=== PATIENT | female | born 1945 | race Caucasian/White ===

== ENCOUNTER 2018-03-25 11:13 | Observation (INO) | payer MEDICARE ==
[~2018-03-25] VITALS: Ht 160 cm; Wt 76.4 kg
[2018-03-25] VITALS (11 sets, daily range): BP systolic 120–165; BP diastolic 81–94; BMI 29.9
--- NOTE | ~2018-03-25 | OP ---
PATIENT NAME: SUDHEER YOUNG MEDICAL RECORD: [id number] :41 LOCATION:D.M2 D.2123 ADMISSION DATE:03/25/18 SURGEON: IRVING GIORDANO MD DATE OF OPERATION: 03/28/2018 PROCEDURES: 1. PTCA stent left circumflex. 2. Selective coronary angiography. INDICATION: Angina and coronary artery disease. PROCEDURE IN DETAIL: After informed consent was obtained and after a detailed description of the risks, benefits as well as alternative therapies, the patient elected to proceed with angiogram and angioplasty. The right femoral area was prepped and draped in normal sterile fashion. The right femoral artery was cannulated via modified Seldinger technique with placement of 6-Lithuanian sheath. All catheters exchanged through this sheath. FINDINGS: The left circumflex has 90% stenosis in the proximal mid vessel. This was addressed with a 2.5 x 18 mm Mickey stent. Result was 0% residual stenosis. OVERALL IMPRESSION: Successful percutaneous transluminal coronary angioplasty stent of the left circumflex going from 80% to 90% initial stenosis to 0% residual. TRANSINT:[id number] Voice Confirmation ID: [id number] DOCUMENT ID: [id number] IRVING GIORDANO MD at 1642 CC: [id number] DICTATION DATE: 03/28/18 1300 BI LEAD: 03/28/18 1317 DIS IN 03/28/[address] [address]
--- NOTE | ~2018-03-25 | HEMODYNAMI ---
PATIENT:SUDHEER YOUNG MEDICAL RECORD: [id number] : 41 LOCATION:[facility] D.2123 ADMISSION DATE: 03/25/18 Generatedon:03/28/201812:59 Patient name: SUDHEER YOUNG Patient #: [id number] SSN: : 1945 Date of study: 03/28/2018 Page: Of Hemodynamic Procedure Report Patient Data Patient Demographics Procedure consent was obtained First Name: SUDHEER Gender: Female Last Name: HANNAH : 1945 Patient #: [id number] Age: 72 year(s) Race: Unknown Additional ID: [id number] Contact details Address: [address] [place] [address] ROAD State: [place] City: [place] Zip code: [address] Admission Admission Data Admission Date: 03/25/2018 Admission Time: 13:02 Arrival Date: 03/25/2018 Arrival Time: 13:02 Admit Source: Emergency Insurance Payor: Medicare department Room #: D.2123 Height (in.): 63 BSA: 1.8 (m2) Height (cm.): 160.02 BMI: 29.82 (kg/m2) Weight (lbs.): 168.35 Weight (kg.): 76.36 Lab Results Lab Result Date: 03/27/2018 Lab Result Time: 0:00 Biochemistry Name Units Result Min Max BUN mg/dl 34 --(----)-* 7 18 Creatinine mg/dl 2.1 --(----)-* 0.6 1.3 CBC Name Units Result Min Max Hemoglobin g/dl 10 *-(----)-- 13.5 17.5 Procedure Procedure Types Cath Procedure Diagnostic Procedure Sedation Charges Moderate Sedation up to 15 minutes PCI Procedure Coronary Stent Coronary Stent Initial Procedure Description Procedure Date Procedure Date: 03/28/2018 Procedure Start Time: 12:35 Procedure End Time: 12:58 Procedure Staff Name Function James Sandhu MD Performing Physician Tania Lombardo RT Monitor Madi Sutton RN Nurse Paula Castillo RT Scrub Procedure Data Cath Procedure Fluoroscopy Diagnostic fluoroscopy Total fluoroscopy Time: 9.4 time: 9.4 min min Diagnostic fluoroscopy Total fluoroscopy dose: dose: 1115 mGy 1115 mGy Contrast Material Contrast Material Type Amount (ml) Isovue 300 84 Entry Location Entry Primary Successful Side Size Upsize Upsize Entry Closure Succes sful Closure Location (Fr) 1 (Fr) 2 (Fr) Remarks Device Remarks Femoral Left 6 Fr Exoseal artery Short Estimated blood loss: 10 ml Procedure Complications No complications Procedure Medications Medication Administration Route Dosage Oxygen etCO2 Nasal cannula 2 l/min Lidocaine 2% added to field 20 Heparin Flush Bag added to field 2 bags (1000units/500ml NS) 0.9% NaCl I.V. 100 ml/hr Versed I.V. 1 mg Fentanyl I.V. 50 mcg Heparin Bolus I.V. 4000 units Versed I.V. 1 mg Fentanyl I.V. 50 mcg Nitroglycerin IC/IA I.C. 200 mcg Hemodynamics Rest BSA: 1.8 (m2) O2 Consumption: Estimated: 160.32 (ml/min) O2 Consumption indexed: Estimated:89.07 (ml/min/m) Heart Rate: 64 (bpm) Snapshots Pre Cath Intra NCS Post Cath Vital Signs Time Heart Resp SPO2 etCO2 NIBP (mmHg) Rhythm Pain Sedation Rate (ipm) (%) (mmHg) Status Level (bpm) 12:22:58 61 16 99 26.2 185/101(149) NSR 0 (11) 10(A) , No pain 12:27:20 62 19 98 27.7 168/98(139) NSR 0 (11) 10(A) , No pain 12:31:38 62 18 99 27.7 158/98(143) NSR 0 (11) 10(A) , No pain 12:35:52 64 19 97 33 149/90(111) NSR 0 (11) 9(A) , No pain 12:40:04 65 20 97 37.5 162/84(132) NSR 0 (11) 9(A) , No pain 12:44:22 63 15 97 36.8 137/81(117) NSR 0 (11) 9(A) , No pain 12:48:34 64 18 97 36 123/76(108) NSR 0 (11) 9(A) , No pain 12:52:42 65 21 95 36 89/71(80) NSR 0 (11) 9(A) , No pain 12:55:50 68 15 96 27 108/77(100) NSR 0 (11) 10(A) , No pain Medications Time Medication Route Dose Verified Delivered Reason Notes Effectiveness by by 12:31:10 0.9% NaCl I.V. 100 James Buffie Per physician ml/hr Phoebe Sutton RN 12:31:48 Oxygen etCO2 2 James Buffie used for Nasal l/min Phoebe Sutton RN procedure cannula 12:31:54 Lidocaine 2% added 20ml James James for local to vial Phoebe Sandhu MD anesthetic field 12:31:59 Heparin Flush added 2 James James used for Bag to bags Phoebe Sandhu MD procedure (1000units/500ml field NS) 12:35:03 Versed I.V. 1 mg James Leijaie for sedation Phoebe Sutton RN 12:35:09 Fentanyl I.V. 50 James Buffie for sedation mcg Phoebe Sutton RN 12:38:48 Heparin Bolus I.V. 4000 James Buffie for verif ied units Phoebe Sutton RN anticoagulation with dr sandhu 12:46:30 Versed I.V. 1 mg James Leijaie for sedation Phoebe Sutton RN 12:46:33 Fentanyl I.V. 50 James Buffie for sedation mcg Phoebe Sutton RN 12:51:18 Nitroglycerin I.C. 200 James James for IC/IA mcg Phoebe Sandhu MD vasodilation Procedure Log Time Note 12:03:20 Patient Height : 63 inches 12:03:20 Patient Weight : 168.35 lbs 12:03:37 Time tracking: Regular hours (M-F 7:00 - 5:00) 12:03:40 Plan of Care:Hemodynamics will remain stable., Cardiac rhythm will remain stable., Comfort level will be maintained., Respiratory function will remain adequate., Patient/ family verbilizes understanding of procedure., Procedure tolerated without complication., Recovers from procedure without complications.. 12:05:31 Tania Counts RT(R) sent for patient. Start room use. 12:15:44 Patient received from PCU to CCL 2 Alert and oriented. Tansferred to table in Supine position. 12:15:45 Warm blankets applied, and jennifer hugger turned on for patient comfort. 12:15:46 Correct patient and procedure confirmed by team. 12:15:47 Signed procedure consent form obtained from patient. 12:15:48 ECG and BP/O2 sat monitors applied to patient. 12:15:49 Full Disclosure recording started 12:21:53 Vital chart was started 12:21:57 Rhythm: sinus rhythm 12:22:15 H&P Date Dictated: 03/26/2018 Within 30 days and on chart.. 12:22:17 Pre-procedure instructions explained to patient. 12:22:17 Pre-op teaching completed and patient verbalized understanding. 12:22:19 Family in patients room. 12:22:20 Patient NPO since Midnight. 12:22:30 Is the patient allergic to Iodine/contrast media? No. 12:22:31 Is patient on blood thinner?Yes 12:22:34 ACC The patient was administered the following blood thiners within the last 24 hours: ACCPlavix 12:22:36 Patient diabetic? No. 12:22:41 Previous problem with sedation/anesthesia? No ? 12:22:42 Snore? Yes 12:22:44 Sleep apnea? No 12:22:46 Deviated septum? No 12:22:46 Opens mouth fully? Yes 12:22:47 Sticks out tongue? Yes 12:22:51 Airway obstruction? No ? 12:22:52 Dentures? No ? 12:22:55 Pre procedure: left dorsailis pedis pulse 2+ Normal; easily identifiable; not easily obliterated 12:22:59 Patient pain scale 0/10 ?. 12:23:05 IV patent on arrival in left antecubital with 0.9% NaCl at KVO. 12:23:16 Lab results completed and on chart. 12:23:24 Left groin area was prepped with chlora-prep and draped in sterile fashion 12:23:25 Alarms reviewed by R. N. 12:23:26 Sharps counted by scrub and verified by R.N. 12:25:08 IV left antecubital D/C'd due to infiltration. 12:30:56 IV started by Madi Sutton RN inleft forearm with a 22 gauge IV catheter with 0.9% NaCl at KVO. 12:31:10 0.9% NaCl 100 ml/hr I.V. was administered by Madi Sutton RN; Per physician; 12:31:48 Oxygen 2 l/min etCO2 Nasal cannula was administered by Madi Sutton RN; used for procedure; 12::54 Lidocaine 2% 20ml vial added to field was administered by James Sandhu MD; for local anesthetic; 12:31:59 Heparin Flush Bag (1000units/500ml NS) 2 bags added to field was administered by James Sandhu MD; used for procedure; 12:32:27 Final Timeout: patient, procedure, and site verified with staff and physician. All members of the team are in agreement. 12:32:29 Left groin site verified by team. 12:32:32 Physical assessment completed. ASA score P 2 - A patient with mild systemic disease as per James Sandhu MD. 12:32:35 Sedation plan: IV Moderate Sedation Medication:Versed, Fentanyl 12:32:43 Use device set CATH PACK 12:32:46 Use device set PHOEBE PCI 12:33:03 IV CATHETER 22g opened to sterile field. 12:33:19 SHEATH Prelude 6Fr 0.035 ([id number]-7T-98-035) opened to sterile field. 12:33:21 INFLATOR Merit BasixCompak (TL9175) opened to sterile field. 12:33:24 CHOICE PT Extra Support 182cm wire ([id number]) opened to sterile field. 12:33:25 GUIDE 6FR XBLAD 3.5 catheter ([id number]) opened to sterile field. 12:35:03 Versed 1 mg I.V. was administered by Madi Sutton RN; for sedation; 12:35:09 Fentanyl 50 mcg I.V. was administered by Madi Sutton RN; for sedation; 12:35:48 Procedure started. 12:35:54 Local anesthetic to left femerol artery with Lidocaine 2% by James Sandhu MD.INITIAL ACCESS ONLY 12:36:46 A 6 Fr Short sheath was inserted into the Left Femoral artery 12:37:02 6 Fr XBLAD 3.5 guide catheter was inserted over the wire 12:37:29 Guide Catheter removed. unable to cannulate vessel. 12:37:48 GUIDE 6FR XBLAD 4.0 catheter ([id number]) opened to sterile field. 12:38:28 CHOICE PT ES wire advanced. 12:38:48 Heparin Bolus 4000 units I.V. was administered by Madi Sutton RN; for anticoagulation; verified with dr sandhu 12:40:55 Bag Decanter () opened to sterile field. 12:40:55 DIAGNOSTIC WIRE .035 260cm J wire (068555) opened to sterile field. 12:40:57 ACIST Syringe (26465) opened to sterile field. 12:40:58 ACIST Hand Control (49512) opened to sterile field. 12:40:58 ACIST Manifold (53567) opened to sterile field. 12:40:59 Medline Cath Pack ([id number]) opened to sterile field. 12:41:16 Baseline sample Acquired. 12:44:26 Inflate balloon Inflation number: 1 A EUPHORA 2.5 x 15 Balloon ([id number]) was prepped and advanced across the Prox CX, then inflated to 15 GUTIERREZ for 0:11 (min:sec). 12:44:39 Balloon removed over the wire. 12:46:30 Versed 1 mg I.V. was administered by Madi Sutton RN; for sedation; 12:46:33 Fentanyl 50 mcg I.V. was administered by Madi Sutton RN; for sedation; 12:46:43 The KIMMY RX 2.5 x 18 stent ([id number]) was advanced then removed because of failure to cross lesion 12:47:40 Inflation number: 2 The EUPHORA 2.5 x 15 Balloon ([id number]) was reinflated across the Prox CX, to 17 GUTIERREZ for 0:06 (min:sec). 12:47:49 Inflation number: 3 The EUPHORA 2.5 x 15 Balloon ([id number]) was reinflated across the Prox CX, to 17 GUTIERREZ for 0:05 (min:sec). 12:48:03 Balloon removed over the wire. 12:49:01 Place stent Inflation Number: 4 A KIMMY RX 2.5 x 18 stent ([id number]) was prepped and advanced across the Prox CX. The stent was deployed at 13 GUTIERREZ for 0:05 (min:sec). 12:51:18 Nitroglycerin IC/IA 200 mcg I.C. was administered by James Sandhu MD; for vasodilation; 12:51:51 Stent catheter was removed intact over wire. 12:52:28 Wire removed. 12:52:29 Guide catheter removed. 12:54:47 Sheath removed intact; hemostasis achieved with Exoseal to the Left Femoral artery. 12:54:49 Procedure ended.(Physican Out) 12:55:33 Fluoroscopy time 09.40 minutes. 12:55:41 Fluoroscopy dose: 1115 mGy 12:55:41 Flurop Dose total: 1115 12:55:46 Contrast amount:Isovue 300 84ml. 12:55:48 Sharps counted by scrub and verified by R.N. 12:55:50 Insertion/operative site no bleeding no hematoma. 12:56:00 Post-op/insertion site Left Femoral artery dressed using a 4 x 4 and Tegaderm. 12:56:06 Post left femerol artery:stable, clean and dry 12:56:08 Post Procedure Pulses reassessed and unchanged 12:56:11 Post-procedure physical assessment completed. ASA score P 2 - A patient with mild systemic disease as per James Sandhu MD. 12:56:13 Post procedure rhythm: unchanged. 12:56:16 Estimated blood loss: 10 ml 12:56:17 Post procedure instruction explained to patient.Patient verbalizes understanding. 12:56:17 Patient needs reinforcement of post procedure teaching. 12:56:38 Procedure type changed to Cath procedure, Diagnostic procedure, Sedation Charges, Moderate Sedation up to 15 minutes, PCI procedure, Coronary Stent, Coronary Stent Initial 12:56:45 Procedure Complication : No complications 12:57:03 EXOSEAL 6Fr (EX600) opened to sterile field. 12:57:28 Tegaderm 4 x 4 (1626W) opened to sterile field. 12:57:57 Procedure and supply charges have been captured, reviewed, submitted and are correct. 12:57:58 Vital chart was stopped 12:57:59 See physician's report for complete and final results. 12:58:01 Report given to PCU. 12:58:12 Patient transfered to PCU with Bed. 12:58:14 Procedure ended. 12:58:14 Full Disclosure recording stopped 12:58:17 End room use (Document Last) Intervention Summary Intervention Notes Time ActionType Lesion and Equipment Used Action# Pressure Duration Attributes 12:44:26 Inflate Prox CX EUPHORA 2.5 x 1 15 00:11 balloon 15 Balloon ([id number]) 12:46:43 Discard KIMMY RX 2.5 x Stent 18 stent ([id number]) 12:47:40 Reinflate Prox CX EUPHORA 2.5 x 2 17 00:06 balloon 15 Balloon ([id number]) 12:47:49 Reinflate Prox CX EUPHORA 2.5 x 3 17 00:05 balloon 15 Balloon ([id number]) 12:49:01 Place stent Prox CX KIMMY RX 2.5 x 4 13 00:05 18 stent ([id number]) Device Usage Item Name Manufacture Quantity Catalog Number Hospital Part Current Minimal Lot# / Charge Number Stock Stock Serial# Code IV CATHETER 22g B. Irwin 1 [id number] 5 SHEATH Prelude Merit 1 [id number] [id number] [id number] 5 6Fr 0.035 Medical ([id number]) INFLATOR Merit Merit 1 [id number] 847611 967786 155680 15 Cl[facility]TouchCastle[facility] HospitalThe Trade Desk Medical (UC2619) CHOICE PT Extra Atlantic 1 [id number] 956981 529197 262870 5 Support 182cm Scientific wire ([id number]) GUIDE 6FR XBLAD Cardinal 1 [id number] 555707 515134 934811 10 3.5 catheter Health ([id number]) GUIDE 6FR XBLAD Cardinal 1 [id number] 085089 309434 939968 3 4.0 catheter Health (29064084) Bag Decanter Microtek 1 2001S 285168 43466 147380 5 () Medical Inc. DIAGNOSTIC WIRE St Rohit 1 560562 269957 047066 238696 30 .035 260cm J wire (654327) ACIST Syringe Acist 1 73614 703790 676610 927921 20 (55744) Medical Systems Inc ACIST Hand Acist 1 59910 852281 437929 548487 5 Control (58029) Medical Systems Inc ACIST Manifold Acist 1 80387 468230 305511 628786 5 (18403) Medical Systems Inc Medline Cath Cardinal 1 [id number] 999051 35986 957372 5 Pack Health ([id number]) EUPHORA 2.5 x Medtronic 1 [id number] 007393 512549 988232 5 [id number] 15 Balloon ([id number]) KIMMY RX 2.5 x Medtronic 1 [id number] 753816 4151365 926471 5 [id number] 18 stent ([id number]) EXOSEAL 6Fr Cardinal 1 EX600 293723 687429 586800 10 (EX600) Health Tegaderm 4 x 4 3M 1 1626W 487489 477952 015692 5 (1626W) Signature Audit [place] Stage Time Signature Unsigned Intra-Procedure 03/28/2018 Tania 12:58:56 PM Counts RT(R) Signatures Monitor : Tania Signature : Counts RT Date : Time : [id number] [place] [address]
--- NOTE | ~2018-03-25 | HP ---
PATIENT: SUDHEER TALBERT MEDICAL RECORD: [id number] ACCOUNT: [id number] LOCATION:[address] : 41 ADMISSION DATE: 03/25/18 HISTORY AND PHYSICAL EXAMINATION ADMISSION DIAGNOSES: 1. Angina. 2. Shortness of breath, dyspnea on exertion. 3. Hypertension. 4. Family history of coronary artery disease. HISTORY OF PRESENT ILLNESS: Ms. Talbert has been having increasing episodes of chest pain, chest pressure over the past few months. It has really accelerated over the last week. She now has chest pressure and extreme shortness of breath, dyspnea on exertion with any mild exertion. Her EKG is with nonspecific ST-T abnormalities. She still had episodes of chest pressure since being admitted to the hospital. Her troponin is normal. PHYSICAL EXAMINATION: GENERAL APPEARANCE: Well-nourished, well-developed, appears stated age. Level of distress, comfortable. PSYCHIATRIC: Mental status, alert, normal affect. Orientation, oriented to time, place and person. EYES: Lids and conjunctiva, noninjected. No discharge, no pallor. ENT: Lips, teeth, gums, normal dentition. Oropharynx, no cyanosis, no pallor. NECK: Carotid arteries, bilateral normal upstroke, no bruits, no thrills. JUGULAR VEINS: No jugular venous pressure or distention. CERVICAL LYMPH NODES: Nontender, nonenlarged. THYROID: Not enlarged. Nontender. No nodules. LUNGS: Respiratory effort, unlabored. CHEST: Normal curvature. No thoracic deformity. No chest wall tenderness. Percussion, resonant. Auscultation, clear. No wheezes, no rales, no rhonchi. CARDIOVASCULAR: Precordial exam, nondisplaced. No heaves or pericardial thrills. Rate and rhythm, regular. Heart sounds, normal S1, normal S2. No S3, no gallop, no rub. Systolic murmur, not heard. Diastolic murmur, not heard. EXTREMITIES: No cyanosis, no edema. Peripheral pulses, full and equal in all extremities, except as noted. No bruits appreciated. ABDOMEN: Soft, nondistended. Normal aorta. No bruit. Nontender. No masses. Liver, nontender, no hepatomegaly. Spleen, nontender, no splenomegaly. MUSCULOSKELETAL: No joint tenderness. No joint swelling. No erythema. NEUROLOGICAL: Normal gait, normal strength, normal tone. SKIN: Warm and dry. REVIEW OF SYSTEMS: The patient reports easy bruising but reports no swollen glands. The patient reports no fever, no night sweats, no significant weight gain, no significant weight loss. No significant exercise tolerance. The patient reports no dry eyes, no irritation, no vision change. Patient reports no difficulty hearing and no ear pain. Patient reports no frequent nose bleeds or nose and sinus problems. Patient reports on arm pain on exertion. No shortness of breath while lying down. No history of heart murmur. Patient reports no cough, no wheezing or coughing up blood. Patient reports no abdominal pain, no vomiting. Normal appetite. No diarrhea and not vomiting blood. No nausea and no constipation. Patient reports no incontinence. No difficulty urinating. No hematuria. No increased frequency. Patient reports no muscle aches. No weakness, no arthralgias, no back pain. No swelling of the HISTORY AND PHYSICAL [id number] HANNAH,SUDHEER extremities. Patient reports no abnormal mole, no jaundice, no rashes. Reports no loss of consciousness. No weakness and no numbness. No seizures, dizziness, or headaches. The patient reports no depression, no sleep disturbance, feeling safe in a relationship and no alcohol abuse. Patient reports on fatigue. Reports no runny nose or sinus pressure. No itching, no hives, and no frequent sneezing. OVERALL IMPRESSION: Anginal symptomatology in a rapidly progressive fashion. We will proceed with coronary angiography. Further care depends upon findings of the angiography. TRANSINT:[id number] Voice Confirmation ID: [id number] DOCUMENT ID: [id number] IRVING GIORDANO MD at 1642 CC: [id number] DICTATION DATE: 03/26/18 1004 SPEECH THERAPY DIRECTOR: 03/26/18 1035 DIS IN 03/28/18 [facility] [address] [place] [address]
--- NOTE | ~2018-03-25 | HEMODYNAMI ---
PATIENT:SUDHEER YOUNG MEDICAL RECORD: [id number] : 41 LOCATION:[facility] D.2123 ADMISSION DATE: 03/25/18 Generatedon:03/27/20189:47 Patient name: SUDHEER YOUNG Patient #: [id number] SSN: : 1945 Date of study: 03/27/2018 Page: Of Hemodynamic Procedure Report Patient Data Patient Demographics Procedure consent was obtained First Name: SUDHEER Gender: Female Last Name: HANNAH : 1945 Patient #: [id number] Age: 72 year(s) Race: Unknown Additional ID: [id number] Contact details Address: [address] [place] [address] ROAD State: [place] City: [place] Zip code: [address] Admission Admission Data Admission Date: 03/25/2018 Admission Time: 13:02 Arrival Date: 03/25/2018 Arrival Time: 13:02 Admit Source: Emergency Insurance Payor: Medicare department Room #: D.2123 Height (in.): 63 BSA: 1.8 (m2) Height (cm.): 160.02 BMI: 29.82 (kg/m2) Weight (lbs.): 168.35 Weight (kg.): 76.36 Lab Results Lab Result Date: 03/27/2018 Lab Result Time: 0:00 Biochemistry Name Units Result Min Max BUN mg/dl 34 --(----)-* 7 18 Creatinine mg/dl 2.1 --(----)-* 0.6 1.3 CBC Name Units Result Min Max Hemoglobin g/dl 10 *-(----)-- 13.5 17.5 Procedure Procedure Types Cath Procedure Diagnostic Procedure LHC LH w/Coronaries Sedation Charges Moderate Sedation up to 30 minutes PCI Procedure Coronary Stent Coronary Stent Initial Procedure Description Procedure Date Procedure Date: 03/27/2018 Procedure Start Time: 9:24 Procedure End Time: 9:43 Procedure Staff Name Function James Sandhu MD Performing Physician Marce Rhoades RT Monitor Prasad Ruiz RN Nurse Laurita Sarmiento RT Scrub Procedure Data Cath Procedure Fluoroscopy Diagnostic fluoroscopy Total fluoroscopy Time: 3.9 time: 3.9 min min Diagnostic fluoroscopy Total fluoroscopy dose: 522 dose: 522 mGy mGy Contrast Material Contrast Material Type Amount (ml) Isovue 300 102 Entry Location Entry Primary Successful Side Size Upsize Upsize Entry Closure Succes sful Closure Location (Fr) 1 (Fr) 2 (Fr) Remarks Device Remarks Femoral Right 5 Fr 6 Fr Exoseal artery Short Estimated blood loss: 5 ml Diagnostic catheters Device Type Used For End Catheter Placement MULTIPACK Pigtail 5 Fr LV Angiography catheter MULTIPACK JL 4.0 5Fr Left Coronary catheter Angiography MULTIPACK 3DRC 5Fr Right Coronary catheter Angiography Procedure Complications No complications Procedure Medications Medication Administration Route Dosage Oxygen etCO2 Nasal cannula 2 l/min Heparin Flush Bag added to field 2 bags (1000units/500ml NS) 0.9% NaCl I.V. 100 ml/hr Fentanyl I.V. 50 mcg Versed I.V. 1 mg Fentanyl I.V. 25 mcg Versed I.V. 0.5 mg Heparin Bolus I.V. 4000 units Hemodynamics Rest BSA: 1.8 (m2) HGB: 10 (g/dl) O2 Consumption: Estimated: 163.83 (ml/min) O2 Consu mption indexed: Estimated:91.02 (ml/min/m) Heart Rate: 69 (bpm) Pressure Samples Time Site Value (mmHg) Purpose Heart Use Rate(bpm) 9:25 LV 87/16,17 Snapshot 77 Snapshots Pre Cath Intra NCS Post Cath Vital Signs Time Heart Resp SPO2 etCO2 NIBP (mmHg) Rhythm Pain Sedation Rate (ipm) (%) (mmHg) Status Level (bpm) 8:32:27 69 16 97 22.4 165/94(124) NSR 0 (11) 10(A) , No pain 8:36:52 70 17 98 11.2 161/97(139) NSR 0 (11) 10(A) , No pain 8:41:14 71 17 99 3.7 164/93(132) NSR 0 (11) 10(A) , No pain 8:45:34 72 16 98 1.4 150/88(117) NSR 0 (11) 10(A) , No pain 8:49:46 74 16 97 16.4 144/92(122) NSR 0 (11) 10(A) , No pain 8:53:56 75 16 97 26.9 142/94(119) NSR 0 (11) 10(A) , No pain 8:58:10 74 17 97 26.1 142/92(118) NSR 0 (11) 10(A) , No pain 9:02:26 75 17 96 0 153/96(127) NSR 0 (11) 10(A) , No pain 9:06:46 71 17 97 0 148/94(121) NSR 0 (11) 10(A) , No pain 9:11:00 75 17 97 0 150/99(129) NSR 0 (11) 10(A) , No pain 9:15:08 72 18 96 27.6 145/99(138) NSR 0 (11) 10(A) , No pain 9:19:22 76 16 96 27.6 142/93(133) NSR 0 (11) 9(A) , No pain 9:23:29 75 16 96 0 138/94(122) NSR 0 (11) 9(A) , No pain 9:27:45 77 17 95 1.4 135/87(116) NSR 0 (11) 9(A) , No pain 9:32:49 78 16 95 28.4 148/90(123) NSR 0 (11) 9(A) , No pain 9:37:07 78 17 95 0 129/79(110) NSR 0 (11) 9(A) , No pain 9:41:21 76 16 94 11.2 140/83(114) NSR 0 (11) 9(A) , No pain 9:44:15 77 16 96 0 141/89(119) NSR 0 (11) 9(A) , No pain Medications Time Medication Route Dose Verified Delivered Reason Notes Effectiveness by by 8:32:21 Oxygen etCO2 2 James Parham Per physician Nasal l/min Phoebe Ruiz RN cannula 8:32:29 Heparin Flush added 2 James Parham used for Bag to bags Phoebe Ruiz automotive mechanical engineer (1000units/500ml field NS) 8:32:38 0.9% NaCl I.V. 100 James Parham Per physician ml/hr Phoebe Ruiz RN 9:17:12 Fentanyl I.V. 50 James Parham for sedation mcg Phoebe Ruiz RN 9:17:19 Versed I.V. 1 mg James Parham for sedation Phoebe Ruiz RN 9:25:44 Fentanyl I.V. 25 James Parham for sedation mcg Phoebe Ruiz RN 9:25:51 Versed I.V. 0.5 James Parham for sedation mg Phoebe Ruiz RN 9:32:49 Heparin Bolus I.V. 4000 James Parham for units Phoebe Ruiz RN anticoagulation Procedure Log Time Note 8:07:51 Patient Height : 63 inches 8:07:56 Patient Weight : 168.35 lbs 8:09:38 Lab Result : Hemoglobin 10 g/dl 8::38 Lab Result : Creatinine 2.1 mg/dl 8:09:38 Lab Result : BUN 34 mg/dl 8:10:13 Diagnostic Cath status Elective 8:20:43 Laurita MOREIRA(R) sent for patient. Start room use. 8:30:56 Time tracking: Regular hours (M-F 7:00 - 5:00) 8:31:01 Plan of Care:Hemodynamics will remain stable., Cardiac rhythm will remain stable., Comfort level will be maintained., Respiratory function will remain adequate., Patient/ family verbilizes understanding of procedure., Procedure tolerated without complication., Recovers from procedure without complications.. 8:31:01 Vital chart was started 8:31:06 Patient received from Med II to [facility] 3 Alert and oriented. Tansferred to table in Supine position. 8:31:07 Warm blankets applied, and jennifer hugger turned on for patient comfort. 8:31:08 Correct patient and procedure confirmed by team. 8:31:09 Signed procedure consent form obtained from patient. 8:31:10 ECG and BP/O2 sat monitors applied to patient. 8:31:11 Baseline sample Acquired. 8:31:14 Rhythm: sinus rhythm 8:31:16 Full Disclosure recording started 8:31:36 H&P Date Dictated: 03/27/2018 New H&P dictated by physician.. 8:31:38 Pre-procedure instructions explained to patient. 8:31:38 Pre-op teaching completed and patient verbalized understanding. 8:31:40 Family in patients room. 8:31:41 Patient NPO since Midnight. 8:31:43 Is the patient allergic to Iodine/contrast media? No. 8:31:44 Was the patient premedicated? No 8:31:45 Is patient on blood thinner?Yes 8:31:48 ACC The patient was administered the following blood thiners within the last 24 hours: ACCPlavix 8:31:50 Patient diabetic? No. 8:31:52 Previous problem with sedation/anesthesia? No ? 8:31:54 Snore? Yes 8:31:55 Sleep apnea? No 8:31:56 Deviated septum? No 8:31:56 Opens mouth fully? Yes 8:31:57 Sticks out tongue? Yes 8:31:59 Airway obstruction? No ? 8:32:02 Dentures? No ? 8:32:06 Pre procedure: right dorsailis pedis pulse 2+ Normal; easily identifiable; not easily obliterated 8:32:08 Pre procedure: left dorsailis pedis pulse 2+ Normal; easily identifiable; not easily obliterated 8:32:10 Patient pain scale 0/10 ?. 8:32:16 IV patent on arrival in left forearm with 0.9% NaCl at [facility]. 8:32:21 Oxygen 2 l/min etCO2 Nasal cannula was administered by Prasad Ruiz RN; Per physician; 8:32:23 Lab results completed and on chart. 8:32:27 Right groin area was prepped with chlora-prep and draped in sterile fashion 8:32:28 Alarms reviewed by R. N. 8:32:29 Heparin Flush Bag (1000units/500ml NS) 2 bags added to field was administered by Prasad Ruiz RN; used for procedure; 8:32:29 Sharps counted by scrub and verified by R.N. 8:32:38 0.9% NaCl 100 ml/hr I.V. was administered by Prasad Ruiz RN; Per physician; 8:39:27 Admit Source: Emergency department 8:39:35 Insurance Payor : Medicare 8:39:40 Arrival Date: 03/25/2018 1:02:00 PM 8:43:44 Zero performed for pressure channel P1 8:43:53 Zero performed for pressure channel P1 9:15:30 Physician arrived 9:15:31 --------ALL STOP TIME OUT------ 9:15:32 Final Timeout: patient, procedure, and site verified with staff and physician. All members of the team are in agreement. 9:15:34 Right groin site verified by team. 9:15:37 Physical assessment completed. ASA score P 2 - A patient with mild systemic disease as per James Sandhu MD. 9:15:43 Sedation plan: IV Moderate Sedation Medication:Versed, Fentanyl 9:17:12 Fentanyl 50 mcg I.V. was administered by Prasad Ruiz RN; for sedation; 9:17:19 Versed 1 mg I.V. was administered by Prasad Ruiz RN; for sedation; 9:17:53 Use device set Femoral Dx 9:17:55 ACIST Syringe (04243) opened to sterile field. 9:17:55 Bag Decanter (2002S) opened to sterile field. 9:17:55 Medline Cath Pack ([id number]) opened to sterile field. 9:17:56 DIAGNOSTIC WIRE .035 260cm J wire (199934) opened to sterile field. 9:17:57 ACIST Hand Control (48664) opened to sterile field. 9:17:58 ACIST Manifold (44747) opened to sterile field. 9:17:58 DIAGNOSTIC Multipack 5Fr catheter set (OW2808) opened to sterile field. 9:17:59 Tegaderm 4 x 4 (1626W) opened to sterile field. 9:18:00 SHEATH Prelude 5Fr 0.035 (NVM-4A-27-035) opened to sterile field. 9:24:06 Procedure started. 9:24:10 Local anesthetic to right femoral artery with Lidocaine 2% by James Sandhu MD.INITIAL ACCESS ONLY 9:24:23 A 5 Fr sheath was inserted into the Right Femoral artery 9:25:24 A MULTIPACK Pigtail 5 Fr catheter was advanced over the wire and used for LV Angiography. 9:25:39 LV hemodynamics recorded. 9:25:40 LV gram done using KHAN ::43 Injector settings: Ml/sec: 5, Volume: 15, 9::44 Fentanyl 25 mcg I.V. was administered by Prasad Ruiz RN; for sedation; 9::51 Versed 0.5 mg I.V. was administered by Prasad Ruiz RN; for sedation; 9:25:52 EF : 60 % 9:25:56 Catheter removed. 9:26:12 A MULTIPACK JL 4.0 5Fr catheter was advanced over the wire and used for Left Coronary Angiography. 9:26:29 LCA angiography performed. 9::32 Injector settings: Ml/sec: 3, Volume: 6, 9:28:30 Catheter removed. 9:28:35 A MULTIPACK 3DRC 5Fr catheter was advanced over the wire and used for Right Coronary Angiography. 9:29:07 RCA angiography performed. 9:29:09 Injector settings: Ml/sec: 3, Volume: 6, 9:29:38 Catheter removed. 9:29:40 Proceeding to intervention. 9:30:03 SHEATH 6Fr Prelude ([id number]) opened to sterile field. 9:30:04 CHOICE PT Extra Support 182cm wire ([id number]) opened to sterile field. 9:30:05 INFLATOR Merit BasixCompak (OJ9708) opened to sterile field. 9:31:34 GUIDE 6FR XB 4.0 SH catheter ([id number]) opened to sterile field. 9:31:55 xb 4 sh damaged 9:31:57 GUIDE 6FR XB 4.0 SH catheter (99562144) opened to sterile field. 9:32:26 Sheath upsized to a 6 Fr Short. 9:32:49 Heparin Bolus 4000 units I.V. was administered by Prasad Ruiz RN; for anticoagulation; 9:33:00 6 Fr xb 4 sh guide catheter was inserted over the wire 9:33:30 choice pt wire advanced. 9:38:23 Inflate balloon Inflation number: 1 A EUPHORA 2.5 x 15 Balloon ([id number]) was prepped and advanced across the Prox LAD, then inflated to 11 GUTIERREZ for 0:10 (min:sec). 9:38:28 Balloon removed over the wire. 9:39:51 Place stent Inflation Number: 2 A KIMMY RX 2.5 x 15 stent ([id number]) was prepped and advanced across the Prox LAD. The stent was deployed at 13 GUTIERREZ for 0:10 (min:sec). 9:41:04 Stent catheter was removed intact over wire. 9:41:05 Wire removed. 9:41:06 Guide catheter removed. 9:41:18 EXOSEAL 6Fr (EX600) opened to sterile field. 9:41:30 Sheath removed intact; hemostasis achieved with Exoseal to the Right Femoral artery. 9:41:31 Procedure ended.(Physican Out) 9:42:09 Fluoroscopy time 03.90 minutes. 9:42:19 Fluoroscopy dose: 522 mGy 9:42:19 Flurop Dose total: 522 9:42:27 Contrast amount:Isovue 300 102ml. 9:42:29 Sharps counted by scrub and verified by R.N. 9:42:30 Insertion/operative site no bleeding no hematoma. 9:42:33 Post-op/insertion site Right Femoral artery dressed using a 4 x 4 and Tegaderm. 9:42:36 Post right femoral artery:stable 9:42:38 Post Procedure Pulses reassessed and unchanged 9:42:41 Post procedure rhythm: unchanged. 9:42:43 Estimated blood loss: 5 ml 9:42:46 Post procedure instruction explained to patient.Patient verbalizes understanding. 9:42:46 Patient needs reinforcement of post procedure teaching. 9:43:08 Procedure type changed to Cath procedure, Diagnostic procedure, LHC, LHC w/Coronaries, Sedation Charges, Moderate Sedation up to 30 minutes, PCI procedure, Coronary Stent, Coronary Stent Initial 9:43:09 Procedure and supply charges have been captured, reviewed, submitted and are correct. 9:43:15 Procedure Complication : No complications 9:43:18 Vital chart was stopped 9:43:19 See physician's report for complete and final results. 9:43:25 Report given to [facility]. 9:43:27 Patient transfered to [facility] with Stretcher. 9:43:30 Procedure ended. 9:43:30 Full Disclosure recording stopped 9:43:40 ACC-PCI Only Patient was given prescriptions, or instructed by James Sandhu MD to start/continue the following medications upon discharge: Plavix 9:43:42 End room use (Document Last) Intervention Summary Intervention Notes Time ActionType Lesion and Equipment Used Action# Pressure Duration Attributes 9:38:23 Inflate Prox LAD EUPHORA 2.5 x 1 11 00:10 balloon 15 Balloon ([id number]) 9:39:51 Place stent Prox LAD KIMMY RX 2.5 x 2 13 00:10 15 stent ([id number]) Device Usage Item Name Manufacture Quantity Catalog Number Hospital Part Current Minimal Lot# / Charge Number Stock Stock Serial# Code ACIST Syringe Acist 1 98088 409650 398518 [id number] 20 (67889) [employer] Bag Decanter Microtek 1 427401 43060 003718 5 () Medical Inc. Medline Cath Cardinal 1 [id number] 752233 16058 226470 5 Sterio.me Health ([id number]) DIAGNOSTIC WIRE St Rohit 1 271812 636006 759586 250725 30 .035 260cm J wire (893625) ACIST Hand Acist 1 58500 266623 846790 366943 5 Control (48840) [employer] Inc ACIST Manifold Acist 1 31030 687122 243266 404019 5 (43830) [employer] Inc DIAGNOSTIC Cardinal 1 DA5031 532246 76076 560525 30 Multipack 5Fr Health catheter set (JV3918) Tegaderm 4 x 4 3M 1 1626W 064424 177318 324337 5 (1626W) SHEATH Prelude Merit 1 [id number]-9T-82-035 373001 944209 300938 5 5Fr 0.035 Medical (UBY-8S-32-035) MULTIPACK Cardinal 1 091176 5 Pigtail 5 Fr Health catheter MULTIPACK JL Cardinal 1 845204 5 4.0 5Fr Health catheter MULTIPACK 3DRC Cardinal 1 788593 5 5Fr catheter Health SHEATH 6Fr Merit 1 [id number] 768005 100474 864118 5 Prelude Medical ([id number]) CHOICE PT Extra [employer] 1 [id number] 872904 242369 359083 5 Support 182cm Scientific wire ([id number]) INFLATOR Merit Merit 1 VR4457 298655 593268 248850 15 KickAss [employer] Direct Medical (WG3979) GUIDE 6FR XB Cardinal 2 [id number] 061573 265801 484135 2 4.0 SH catheter Health (96959689) EUPHORA 2.5 x Medtronic 1 [id number] 808157 875901 542759 5 [id number] 15 Balloon ([id number]) KIMMY RX 2.5 x Medtronic 1 [id number] 049925 2485831 036416 5 [id number] 15 stent ([id number]) EXOSEAL 6Fr Cardinal 1 EX600 192766 908682 019510 10 (EX600) Health Signature Audit [place] Stage Time Signature Unsigned Intra-Procedure 03/27/2018 Marce Rhoades 9:46:50 AM RT(R) Signatures Monitor : Marce Rhoades RT Signature : Date : Time : [id number] [place] [address]
--- NOTE | ~2018-03-25 | EC ---
PATIENT:SUDHEER YOUNG DATE OF SERVICE: 03/25/18 SEX: F MEDICAL RECORD: [id number] DATE OF : 41 LOCATION:D.M2 D.212 AGE OF PATIENT: 72 ADMISSION DATE: 03/25/18 REFERRING PHYSICIAN: INTERPRETING PHYSICIAN: IRVING SANDHU MD ECHOCARDIOGRAM REPORT ECHO CHARGES 4 ECHO COMPLETE Date: 03/26 CLINICAL DIAGNOSIS: SOB/ELEVATED BNP ECHOCARDIOGRAPHIC MEASUREMENTS (adult normal given) AC root (d.<3.7cm) 3.4 cm LV Septum d (<1.2 cm> 1.5 cm Valve Excursion 1.2 cm LV Septum (systole) 1.6 cm Left Atria (s.<4.0cm> 3.5 cm LVPW d(<1.2cm) 1.4 cm RV (d.<2.3cm) 3.3 cm LVPW (sytole) 1.6 cm LV diastole(<5.6CM) 4.4 cm MV E-F(>70mm/sec) cm LV systole 3.4 cm LVOT Diameter 1.7 cm MV exc.(>10mm) 1.2 cm Est.ejection fraction (50-75%) % DOPPLER: LVIT cm/sec A 95.0 cm/sec E 62.0 cm/sec LA cm/sec RVSP 16 mmHg LVOT 128 cm/sec AOP1/2T m/s Asc. Ao 172 cm/sec RVOT 76 cm/sec RA cm/sec PA 96 cm/sec AV Gradient Peak 11.77mmHg AV Mean 6.45 mmHg AV Area 1.8 cm MV Gradient Peak 4.02 mmHg MV Mean 1.28 mmHg MV Area cm COMMENTS: Room Worker: Osbaldo MAXWELL Dot Net Developer: 1 Dr. Sandhu TAPE# PACS Pericardial Effusion N DATE OF SERVICE: 03/26/2018 PROCEDURE: Echocardiogram. FINDINGS: 1. Left ventricular chamber status is within normal limits. Left ventricular systolic function is normal. Overall ejection fraction estimated at 55%. 2. Left atrium, right atrium, and right ventricle chamber sizes are within normal limits. 3. Valvular structures have normal structure and motion. ECHOCARDIOGRAM REPORT [id number] SUDHEER YOUNG 4. Doppler interrogation only reveals mild aortic insufficiency. No other valvular insufficiency or stenosis. 5. No evidence of pericardial effusion or left ventricular thrombus. Pulmonary systolic pressure is normal estimated at 16 mmHg. TRANSINT:[id number] Voice Confirmation ID: [id number] DOCUMENT ID: [id number] IRVING SANDHU MD at 1642 CC: [id number] DICTATION DATE: 03/27/18 1231 JANITOR HELPER: 03/27/18 1332 DIS IN 03/28/18 [facility] [address] [facility], [facility]
--- NOTE | ~2018-03-25 | DS ---
PATIENT:SUDHEER TALBERT :41 MEDICAL RECORD: [id number] DISCHARGE SUMMARY ADMISSION DATE: 03/25/18 DISCHARGE DATE: 03/28/18 DIAGNOSES: 1. Angina. 2. Coronary artery disease. 3. Percutaneous transluminal coronary angioplasty stent of left anterior descending and left circumflex this admission. HOSPITAL COURSE: Mrs. Talbert presents with unstable anginal symptomatology, found to have significant disease of the left circumflex and LAD, underwent successful PTCA stent of both territories, was discharged home with the addition of aspirin and Plavix to her medical regimen. Will follow up with [facility] in 1 month. TRANSINT:[id number] Voice Confirmation ID: [id number] DOCUMENT ID: [id number] IRVING GIORDANO MD at 1642 CC: [id number] DICTATION DATE: 03/28/18 1300 BLUEPRINT ASSEMBLER: 03/28/18 1312 DIS IN 03/28/18 [id number] [place] [address]
--- NOTE | ~2018-03-25 | OP ---
PATIENT NAME: SUDHEER YOUNG MEDICAL RECORD: [id number] :41 LOCATION:D.M2 D.2123 ADMISSION DATE:03/25/18 SURGEON: IRVING GIORDANO MD DATE OF OPERATION: 03/27/2018 PROCEDURES: 1. PTCA stent LAD. 2. Left heart catheterization. 3. Selective coronary angiography. 4. Left ventriculogram. INDICATION: Angina and coronary artery disease. PROCEDURE IN DETAIL: After informed consent was obtained and after a detailed description of risks, benefits as well as alternative therapies, the patient elected to proceed with angiogram and angioplasty. The right femoral area was prepped and draped in normal sterile fashion. The right femoral artery was cannulated via modified Seldinger technique with placement of 6-Georgian sheath. All catheters exchanged through this sheath. FINDINGS: The left ventriculogram was performed in standard 30-degree KHAN view, reveals good cardiac wall motion throughout all segments. Overall ejection fraction estimated 60%. SELECTIVE CORONARY ANGIOGRAPHY: 1. Left main is heavily calcified, but does not appear to be flow limiting stenosis. 2. The left anterior descending has a 90% stenosis proximally. 3. The circumflex has 90% stenosis proximally. 4. The right coronary artery is large, dominant with moderate diffuse disease. PTCA STENT OF THE LAD: The stent used was a 2.5 x 15 mm [place]. Result was 0% residual stenosis. OVERALL IMPRESSION: Successful percutaneous transluminal coronary angioplasty stent of the left anterior descending going from 90% initial stenosis to 0% residual. PLAN: For PTCA stent of the left circumflex in the near future. TRANSINT:[id number] Voice Confirmation ID: [id number] DOCUMENT ID: [id number] IRVING GIORDANO MD at 1642 CC: [id number] DICTATION DATE: 03/27/18 0945 RUG CLEANER HELPER: 03/27/18 1104 DIS IN 03/28/18 [place] [id number]
[2018-03-25] MEDS ORDERED: LEVOTHYROXINE137 MCG PO (11:30)
[2018-03-25] MEDS ORDERED: METOPROLOL TART50 MG PO (11:30)
[2018-03-25] MEDS ORDERED: STRATTERA40 MG PO (11:32)
[2018-03-25] MEDS ORDERED: HYZAAR 50-12.51 TAB PO (11:32)
[2018-03-25] MEDS ORDERED: CO Q-10100 MG PO (11:33)
[2018-03-25] MEDS ORDERED: NIACIN100 MG PO (11:33)
[2018-03-25] MEDS ORDERED: FLAXSEED OIL1000 MG PO (11:34)
[2018-03-25] MEDS ORDERED: MAGNESIUM OXID500 MG PO (11:35)
[2018-03-25] MEDS ORDERED: DHEA25 M1 PO (11:35)
[2018-03-25] MEDS ORDERED: VITAMIN D31000 UNI2 PO (11:35)
[2018-03-25] MEDS ORDERED: MULTIPLE VITAMI1 TA1 PO (11:36)
[2018-03-25 11:51] LABS: BASOPHILS 0.1 % (0-2); EOSINOPHILS 0.6 % (0-7); HEMATOCRIT 31.2 % (36.0-48.0); HEMOGLOBIN 10.7 g/dL (12-16); IMMATURE GRANULOCYTES 0.3 % (0-5); LYMPHOCYTES 13.1 % (15-50); MCH 31.8 pg (26.0-34.0); MCHC 34.3 g/dL (31.0-37.0); MCV 92.9 fL (80.0-100.0); MEAN PLATELET VOLUME 9.7 fL (7.4-10.4); MONOCYTES 5.9 % (2-11); PLATELET COUNT 296 10x3/uL (130-400); RBC 3.36 10x6/uL (4.00-5.40); RDW 12.8 % (11.5-14.5); WBC 10.4 10x3/uL (4.8-10.8)
[2018-03-25 12:42] LABS: ALBUMIN 2.8 g/dL (3.4-5.0); ALKALINE PHOSPHATASE 75 U/L (46-116); ALT (SGPT) 9 U/L (10-68); BILIRUBIN - TOTAL 0.28 mg/dL (0.2-1.3); CALC OSMOLALITY 282 mosm/kg (275-300); CALCIUM 8.5 mg/dL (8.5-10.1); CARBON DIOXIDE 31.8 mmol/L (21.0-32.0); CHLORIDE - SERUM 98 mmol/L (98-107); CREATININE - SERUM 1.9 mg/dL (0.6-1.3); GLUCOSE 98 mg/dL (74-106); POTASSIUM - SERUM 3.5 mmol/L (3.5-5.1); PROTEIN - SERUM 7.1 g/dL (6.4-8.2); SODIUM 137 mmol/L (136-145); UREA NITROGEN 37 mg/dL (7-18); eGFR NON AFRICAN AMERICAN 27 mL/min (90-120)
[2018-03-25 12:43] LABS: LIPASE 216 U/L (73-393); PRO BNP 2453 pg/mL (0-125)
[2018-03-25 12:44] LABS: TROPONIN-I < 0.017 ng/mL (0.000-0.060)
[2018-03-25] MEDS ORDERED: AUGMENTIN 875-11 TAB PO (21:01)
[2018-03-26] VITALS (7 sets, daily range): BP systolic 121–146; BP diastolic 66–93; Ht 160 cm; Wt 76.4 kg
[2018-03-26 14:46] LABS: % SATURATION 10 % (15-55); IRON 18 ug/dl (35-150); TOTAL IRON BIND CAPACITY 179 ug/dl (260-445); UNSAT IRON BIND CAPACITY 161 ug/dl (150-375)
[2018-03-27 04:16] VITALS: BP 144/94
[2018-03-27 05:15] LABS: BASOPHILS 0.2 % (0-2); EOSINOPHILS 2.3 % (0-7); IMMATURE GRANULOCYTES 0.5 % (0-5); LYMPHOCYTES 18.3 % (15-50); MCH 30.7 pg (26.0-34.0); MCHC 33.3 g/dL (31.0-37.0); MEAN PLATELET VOLUME 8.9 fL (7.4-10.4); MONOCYTES 9.2 % (2-11); NEUTROPHILS 69.5 % (40-80); PLATELET COUNT 272 10x3/uL (130-400); RBC 3.26 10x6/uL (4.00-5.40); RDW 12.7 % (11.5-14.5); WBC 8.1 10x3/uL (4.8-10.8)
[2018-03-27 05:43] LABS: ANION GAP 14.4 mmol/L (8-16); CALCIUM 8.2 mg/dL (8.5-10.1); CARBON DIOXIDE 26.1 mmol/L (21.0-32.0); CHOL - HDL RATIO 5.7 ratio (2.3-4.1); CREATININE - SERUM 2.1 mg/dL (0.6-1.3); LDL-HDL RATIO 3.8 ratio (1.5-3.5); POTASSIUM - SERUM 3.5 mmol/L (3.5-5.1)
[2018-03-27 07:49] VITALS: BP 144/89
[2018-03-27 11:03] VITALS: BP 147/65
[2018-03-27 21:56] VITALS: BP 140/86
[2018-03-28 05:42] VITALS: BP 167/84
[2018-03-28 05:48] LABS: BASOPHILS 0.3 % (0-2); EOSINOPHILS 3.5 % (0-7); HEMATOCRIT 29.8 % (36.0-48.0); HEMOGLOBIN 9.9 g/dL (12-16); IMMATURE GRANULOCYTES 0.6 % (0-5); LYMPHOCYTES 23.2 % (15-50); MCH 30.8 pg (26.0-34.0); MCHC 33.2 g/dL (31.0-37.0); MCV 92.8 fL (80.0-100.0); MEAN PLATELET VOLUME 8.9 fL (7.4-10.4); NEUTROPHILS 62.4 % (40-80); PLATELET COUNT 288 10x3/uL (130-400); RBC 3.21 10x6/uL (4.00-5.40); RDW 12.8 % (11.5-14.5); WBC 6.2 10x3/uL (4.8-10.8)
[2018-03-28 06:03] LABS: ANION GAP 10.8 mmol/L (8-16); CALCIUM 7.8 mg/dL (8.5-10.1); CARBON DIOXIDE 26.1 mmol/L (21.0-32.0); POTASSIUM - SERUM 3.9 mmol/L (3.5-5.1)
[2018-03-28 07:47] VITALS: BP 140/84
[2018-03-28 10:19] LABS: FOLATE (FOLIC ACID) - SERUM 18.1 ng/mL (>3.0)
[2018-03-28 11:00] VITALS: BP 132/76
[2018-03-28] MEDS ORDERED: ASPIRIN81 MG PO (15:26)
[2018-03-28] MEDS ORDERED: PLAVIX75 MG PO (15:26)
== END 2018-03-28 18:28 | disposition home or self-care (01) ==
LOC: D.ER 11:13 → OBSVTIME 13:02 → D.M2 13:02 → D.EDHOLD 13:02 → D.M2 17:44
PROVIDERS: Family Medicine; Internal Medicine Nephrology
DX: I25.110 Atherosclerotic heart disease of native coronary artery with unstable angina pectoris (principal); N17.9 Acute kidney failure, unspecified; I10 Essential (primary) hypertension; K21.9 Gastro-esophageal reflux disease without esophagitis
CPT/HCPCS: C9600 ×2; 93458

== ENCOUNTER 2018-04-20 00:47 | Emergency (ER) | payer MEDICARE ==
[~2018-04-20] VITALS: Ht 160 cm; Wt 76.8 kg
[~2018-04-20 00:47] MED LIST: ASPIRIN81 MG PO; AUGMENTIN 875-11 TAB PO; CO Q-10100 MG PO; DHEA25 M1 PO; FLAXSEED OIL1000 MG PO; HYZAAR 50-12.51 TAB PO; LEVOTHYROXINE137 MCG PO; MAGNESIUM OXID500 MG PO; METOPROLOL TART50 MG PO; MULTIPLE VITAMI1 TA1 PO; NIACIN100 MG PO; PLAVIX75 MG PO; STRATTERA40 MG PO; VITAMIN D31000 UNI2 PO
[2018-04-20 00:59] VITALS: Ht 160 cm; Wt 76.8 kg
[2018-04-20] MEDS ORDERED: PRAVACHOL20 MG PO (01:05)
[2018-04-20 04:37] VITALS: BP 158/74
== END 2018-04-20 04:38 | disposition home or self-care (01) ==
LOC: D.ER 00:47
DX: I10 Essential (primary) hypertension (principal)

== ENCOUNTER 2018-04-25 00:10 | Emergency (ER) | payer MEDICARE ==
[~2018-04-25] VITALS: Ht 160 cm; Wt 75.3 kg
[~2018-04-25 00:10] MED LIST changes: +PRAVACHOL20 MG PO
[2018-04-25 00:21] VITALS: Ht 160 cm; Wt 75.3 kg
[2018-04-25 02:07] LABS: BASOPHILS 0.5 % (0-2); EOSINOPHILS 3.4 % (0-7); HEMATOCRIT 25.5 % (36.0-48.0); HEMOGLOBIN 8.4 g/dL (12-16); IMMATURE GRANULOCYTES 0.5 % (0-5); LYMPHOCYTES 27.1 % (15-50); MCH 30.7 pg (26.0-34.0); MCHC 32.9 g/dL (31.0-37.0); MCV 93.1 fL (80.0-100.0); MEAN PLATELET VOLUME 8.5 fL (7.4-10.4); MONOCYTES 8.7 % (2-11); NEUTROPHILS 59.8 % (40-80); PLATELET COUNT 271 10x3/uL (130-400); RBC 2.74 10x6/uL (4.00-5.40); RDW 12.8 % (11.5-14.5); WBC 6.2 10x3/uL (4.8-10.8)
[2018-04-25 02:15] LABS: APPEARANCE HAZY (CLEAR); BILIRUBIN NEGATIVE (NEGATIVE); COLOR YELLOW (YELLOW); GLUCOSE NEGATIVE (NEGATIVE); KETONE NEGATIVE (NEGATIVE); NITRITE NEGATIVE (NEGATIVE); PROTEIN 3+ mg/dL (NEGATIVE); UROBILINOGEN NORMAL (NORMAL)
[2018-04-25 02:16] LABS: ALBUMIN 2.9 g/dL (3.4-5.0); ALKALINE PHOSPHATASE 74 U/L (46-116); ALT (SGPT) 20 U/L (10-68); BILIRUBIN - TOTAL 0.17 mg/dL (0.2-1.3); CALC OSMOLALITY 285 mosm/kg (275-300); CALCIUM 8.5 mg/dL (8.5-10.1); CARBON DIOXIDE 26.6 mmol/L (21.0-32.0); CHLORIDE - SERUM 101 mmol/L (98-107); CREATININE - SERUM 3.1 mg/dL (0.6-1.3); GLUCOSE 103 mg/dL (74-106); POTASSIUM - SERUM 3.7 mmol/L (3.5-5.1); PROTEIN - SERUM 6.9 g/dL (6.4-8.2); SODIUM 136 mmol/L (136-145); UREA NITROGEN 52 mg/dL (7-18); eGFR NON AFRICAN AMERICAN 15 mL/min (90-120)
[2018-04-25 02:17] LABS: BACTERIA FEW /hpf (NONE SEEN); EPITHELIAL CELLS 0-5 /hpf (0-5)
[2018-04-25 02:30] LABS: CKMB 0.4 U/L (0.0-3.6); CREATINE KINASE 18 UL (21-215); PRO BNP 1234 pg/mL (0-125); TROPONIN-I < 0.017 ng/mL (0.000-0.060)
[2018-04-25] MEDS ORDERED: MACROBID100 MG PO (02:54)
[2018-04-25 03:07] VITALS: BP 152/86
== END 2018-04-25 03:08 | disposition home or self-care (01) ==
LOC: D.ER 00:10
PROVIDERS: Family Medicine
DX: N39.0 Urinary tract infection, site not specified (principal); R51 Headache

== ENCOUNTER 2018-04-27 23:42 | Emergency (ER) | payer MEDICARE ==
[~2018-04-27] VITALS: Ht 160 cm; Wt 74.8 kg
[~2018-04-27 23:42] MED LIST changes: +MACROBID100 MG PO
[2018-04-27 23:47] VITALS: Ht 160 cm; Wt 74.8 kg
[2018-04-28 00:25] LABS: APPEARANCE HAZY (CLEAR); BACTERIA NONE SEEN /hpf (NONE SEEN); BILIRUBIN NEGATIVE (NEGATIVE); COLOR YELLOW (YELLOW); EPITHELIAL CELLS RARE /hpf (0-5); GLUCOSE NEGATIVE (NEGATIVE); KETONE NEGATIVE (NEGATIVE); NITRITE NEGATIVE (NEGATIVE); PROTEIN TRACE mg/dL (NEGATIVE); RED CELLS - URINE >50 /hpf (0-5); SPECIFIC GRAVITY 1.005 (1.005-1.020); UROBILINOGEN NORMAL (NORMAL); WHITE CELLS - URINE 0-5 /hpf (0-5); YEAST <1+ /hpf (NONE SEEN)
[2018-04-28 01:47] VITALS: BP 162/77
== END 2018-04-28 01:47 | disposition home or self-care (01) ==
LOC: D.ER 23:42
PROVIDERS: Family Medicine
DX: I10 Essential (primary) hypertension (principal)